=== PATIENT | male | born 1975 | race Caucasian/White ===

== ENCOUNTER 2016-08-06 11:35 | Emergency (ER) | payer SELFPAY ==
[~2016-08-06] VITALS: Ht 170.2 cm; Wt 67.0 kg
[~2016-08-06 11:35] MED LIST: CEPH500C3 PO; HYDR-3534 PO; METH750T2 PO
[2016-08-06 11:36] VITALS: BP 132/82; PULSE 80; RESP 17; TEMP 98.8; O2SAT 98
--- NOTE | 2016-08-06 11:48 | PD ---
Physical Exam Date Seen by Provider: August 06, 2016 Time Seen by Provider: 11:45 Narrative Pt c/o upper teeth pain and swelling. symptoms started yesterday, he reports that his whole face was swollen. The swelling has resolved some since awakening. Pt has not seen a dentist. Multiple dental caries. VSS Data Data Last Documented VS Vital Signs Date Time Temp Pulse Resp B/P Pulse Ox O2 Delivery O2 Flow Rate FiO2 08/06/16 11:36 98.8 80 17 132/82 98 MDM Supervised Visit with KHAI: Bina Jorgensen August 06, 2016 11:48
--- NOTE | 2016-08-06 11:51 | PD ---
HPI . dental issues for a while Chief Complaint: Oral / Dental Pain or Problem Time Seen by Provider: 11:50 Travel History International Travel<30 days: No Contact w/Intl Traveler<30days: No Traveled to known affect area: No History of Present Illness HPI 40-year-old male here with complaints of tooth pain for quite some time. Patient says that he has had tooth issues for quite some time, but recently for the past few days that he is experiencing facial swelling mainly in his lip. Numbers 7, 8, 9 and 10 are causing him great difficulty. He tells me that he knows that he needs to see a dentist, but has been unable to do so secondary work. He denies any fever or chills. He has no other complaints. He has been using ibuprofen for the pain, which is working. PFSH Past Medical History Diminished Hearing: No Immunizations Current: Yes Past Surgical History Other Surgery: Yes (BILATERAL INGUINAL HERNIA REPAIR) Social History Alcohol Use: Yes (WEEK END) Tobacco Use: Yes (1 PPD) Substance Use: No Allergies-Medications (Allergen,Severity, Reaction): Coded Allergies: No Known Allergies (Unverified , 09/04/15) Reported Meds & Prescriptions Reported Meds & Active Scripts Active Augmentin (Amoxicillin-Clavulanate) 875-125 mg Tab 875 Mg PO BID not for use in CrCl <30 ml/min. Methocarbamol 750 Mg Tab 750 Mg PO QID 2 tabs QID for 2 days, then 1 tab QID thereafter Lortab 7.5 mg/325 mg (Hydrocodone/Acetaminophen 7.5 mg/325 mg) 1 Tab 1 Tab PO Q6HR PRN Lortab 7.5 mg/325 mg (Hydrocodone/Acetaminophen 7.5 mg/325 mg) 1 Tab 1 Tab PO Q4H PRN Keflex (Cephalexin Monohydrate) 500 Mg Cap 1 Tab PO Q6HR Review of Systems General / Constitutional: No: Fever Eyes: No: Visual changes HENT: Positive: Dental Difficulties, No: Headaches Cardiovascular: No: Chest Pain or Discomfort Respiratory: No: Shortness of Breath Gastrointestinal: No: Abdominal Pain Genitourinary: No: Dysuria Musculoskeletal: No: Pain Skin: No Rash Neurologic: No: Weakness Psychiatric: No: Depression Endocrine: No: Polydipsia Hematologic/Lymphatic: No: Easy Bruising Physical Exam Narrative GENERAL: AAO x 3, no acute distress, Well-nourished, well-developed patient. SKIN: Warm and dry. No visible rashes or bruising. HEAD: Normocephalic and atraumatic. EYES: No scleral icterus. No injection or drainage. ENT: No nasal drainage noted. Mucous membranes pink. Airway patent. Very minimal swelling of the upper lip near #7-10. #7, 8, 9 and 10 are all decaying and there is gingival edema present, lots of food particles; no definitive abscess or pus seen NECK: Supple, trachea midline. No JVD. no lymphadenopathy. CARDIOVASCULAR: Regular rate and rhythm without murmurs, gallops, or rubs. RESPIRATORY: Breath sounds equal bilaterally. No accessory muscle use. No rhonchi or rales. GASTROINTESTINAL: visual inspection normal EXTREMITIES: No cyanosis or edema. BACK: Nontender without obvious deformity. No CVA tenderness. PSYCH: AAO x 3, normal affect. Data Data Last Documented VS Vital Signs Date Time Temp Pulse Resp B/P Pulse Ox O2 Delivery O2 Flow Rate FiO2 08/06/16 11:36 98.8 80 17 132/82 98 MDM Medical Decision Making Medical Screen Exam Complete: Yes Emergency Medical Condition: Yes Medical Record Reviewed: Yes Differential Diagnosis gingivitis, dentalgia, less likely oral abscess, less likely angioedema Narrative Course 40-year-old male here with complaints of tooth pain for quite some time. Patient says that he has had tooth issues for quite some time, but recently for the past few days that he is experiencing facial swelling mainly in his lip. Numbers 7, 8, 9 and 10 are causing him great difficulty. He tells me that he knows that he needs to see a dentist, but has been unable to do so secondary work. He denies any fever or chills. He has no other complaints. He has been using ibuprofen for the pain, which is working. Patient seen and examined. He has some very minimal lip swelling and has what appears to be gingivitis. He also has problems with tooth #7, 8, 9 and 10. He will need to have all of these teeth removed as they are decaying. I've explained this to him at length and advised him to see a dentist as soon as possible. I will provide him with a course of antibiotics to cover for oral bugs. He can continue to use ibuprofen for pain. Patient verbalized understanding of instructions, questions were answered, and thanked me for their care. I advised them if their condition worsens, please return to the nearest emergency room for further care. Diagnosis Primary Impression: Dentalgia Additional Impressions: Gingivitis Dental caries Patient Instructions: General Instructions Additional Instructions: Please see a dentist as soon as possible. Please return to emergency department if your symptoms return or worsen. Follow up with your primary care provider. Take medications as prescribed. Use Tylenol or ibuprofen as needed for pain. Med/Other Pt SpecificInfo: Prescription(s) given Scripts Amoxicillin-Clavulanate (Augmentin)875-125 mg Nlr807 Mg PO BID #20 TAB not for use in CrCl <30 ml/min. Prov:Stevenson Stoll MD 08/06/16 Disposition: 01 DISCHARGE HOME Condition: Stable Jamila Hernandez August 06, 2016 11:51
[2016-08-06] MEDS ORDERED: AUGM875T PO (11:53)
== END 2016-08-06 12:12 | disposition home or self-care (01) ==
LOC: NEPK 11:35
DX: K05.10 Chronic gingivitis, plaque induced (principal); K02.9 Dental caries, unspecified; F17.200 Nicotine dependence, unspecified, uncomplicated
CPT/HCPCS: 99282